=== PATIENT | female | born 1975 | race American Indian/Alaskan Native ===

== ENCOUNTER 2017-01-30 15:19 | Inpatient (IN) | payer MEDICAID ==
[2017-01-30 18:16] LABS: Hemoglobin 10.9 gm/dl (10.1-14.3)
[2017-01-30 18:23] LABS: Hematocrit 34.9 % (30.3-42.9); Mean Corpuscular HGB Conc 31 % (30-34); Mean Corpuscular Hemoglobin 25 pg (28-32); Mean Corpuscular Volume 79 fl (79-97); Platelet Count 485 K/mm3 (140-440); Red Blood Count 4.41 M/mm3 (3.65-5.03); Red Cell Distribution Width 20.8 % (13.2-15.2); White Blood Count 17.5 K/mm3 (4.5-11.0)
[2017-01-30 18:40] LABS: Alanine Aminotransferase 12 units/L (7-56); Albumin 3.9 g/dL (3.9-5); Albumin/Globulin Ratio 0.7 %; Alkaline Phosphatase 64 units/L (35-129); Anion Gap 22 mmol/L; BUN/Creatinine Ratio 18.33; Blood Urea Nitrogen 11 mg/dL (7-17); Calcium 8.9 mg/dL (8.4-10.2); Carbon Dioxide 22 mmol/L (22-30); Glucose 129 mg/dL (65-100); Lipase 17 units/L (13-60); Potassium 3.5 mmol/L (3.6-5.0); Sodium 139 mmol/L (137-145); Total Protein 9.6 g/dL (6.3-8.2)
[2017-01-30 19:05] LABS: Basophils % (Manual) 0 % (0.0-1.8); Blastocytes % (Manual) 0 %; Eosinophils % (Manual) 0 % (0.0-4.3)
[2017-01-30 19:07] LABS: Anisocytosis 1+; Diff Status Complete
[2017-01-30] MEDS ORDERED: ZOFRAN IV ONE (19:38)
[2017-01-30] MEDS ORDERED: ZOFRAN ODT PO ONE (20:40)
[2017-01-30] MEDS ORDERED: ZOFRAN ODT ONE (20:45)
[2017-01-30 21:12] LABS: Bilirubin,Urine NEG (Negative); Blood,Urine NEG (Negative); Ketones,Urine NEG (Negative); Leukocyte Esterase,Urine SM (Negative); Mucus,Urine 3+ /HPF; Nitrite,Urine NEG (Negative); Urobilinogen,Urine < 2.0 mg/dL (<2.0)
[2017-01-30] MEDS ORDERED: NACL 0.9% 1000 ML 1,000 ML IV ONE (21:18)
[2017-01-30] MEDS ORDERED: DILAUDID IV ONE (21:18)
--- NOTE | 2017-01-30 21:24 | Emergency Department Report ---
ED Abdominal Pain HPI - General Chief Complaint: Abdominal Pain Stated Complaint: BACK PAIN/ABD PAIN Time Seen by Provider: 01/30/17 21:13 Source: patient, EMS Mode of arrival: Stretcher Limitations: No Limitations - History of Present Illness Initial Comments: 41-year-old female with a past medical history of HIV with undetectable viral load, GERD, hypertension, depression, anxiety, and kidney stones and previous history included 3 visits to the hospital complains of right abdominal pain. Pain is aching, burning, rated 10/10 in intensity. Palpation and movement. No alleviating factors. Symptoms are constant. Positive associated nausea and vomiting. Denies hematuria, dysuria, or fever. Severity scale (0 -10): 10 - Related Data Home Medications Medication Instructions Recorded Confirmed Last Taken Cephalexin [Keflex] 500 mg PO 01/30/17 1 Day Ago 500mg Previous Rx's Medication Instructions Recorded Last Taken Type Ibuprofen [Motrin] 800 mg PO Q8HR PRN #60 tablet 03/14/15 1 Day Ago Rx 800mg traMADol [Ultram] 50 mg PO Q6HR PRN #20 tablet 03/14/15 1 Day Ago Rx oxyCODONE /ACETAMINOPHEN [Percocet 1 tab PO Q6HR PRN #16 tablet 04/07/15 1 Day Ago Rx 5/325] Allergies Allergy/AdvReac Type Severity Reaction Status Date / Time promethazine HCl AdvReac ANXIOUS/ Verified 03/14/15 11:28 [From Phenergan] RONN ED Review of Systems ROS: Stated complaint: BACK PAIN/ABD PAIN Other details as noted in HPI Comment: All other systems reviewed and negative Other: Constitutional: No fevers chills Eyes: No eye pain visual changes ENT: No ear pain or throat pain Neck: Denies pain Respiratory: Denies cough wheezing shortness of breath Cardiovascular: Denies chest pain, palpitations, syncope GI:as per hpi : Denies dysuria Musculoskeletal: Denies back pain Skin: Denies rash, lesions, erythema Neurologic: Denies headache, numbness, weakness ED Past Medical Hx - Past Medical History Hx Hypertension: Yes Hx GERD: Yes Hx Sickle Cell Disease: (TRAIT) Hx Arthritis: Yes Hx Kidney Stones: Yes Hx Psychiatric Treatment: Yes (MANIC DEPRESSION; ANXIETY) Hx HIV: Yes - Surgical History Hx Breast Surgery: Yes (RIGHT LUMPECTOMY) Additional Surgical History: X 3. RIGHT CARPAL TUNNEL RELEASE. BILATERAL KNEE. BACK SURGERY - Social History Smoking Status: Former Smoker Substance Use Type: None - Medications Home Medications: Home Medications Medication Instructions Recorded Confirmed Last Taken Type Ibuprofen [Motrin] 800 mg PO Q8HR PRN #60 tablet 03/14/15 01/30/17 1 Day Ago Rx 800mg traMADol [Ultram] 50 mg PO Q6HR PRN #20 tablet 03/14/15 01/30/17 1 Day Ago Rx oxyCODONE /ACETAMINOPHEN [Percocet 1 tab PO Q6HR PRN #16 tablet 04/07/15 1 Day Ago Rx 5/325] Cephalexin [Keflex] 500 mg PO 01/30/17 1 Day Ago History 500mg ED Physical Exam - General Limitations: No Limitations - Other Other exam information: General: Moderate distress due to pain Head exam: Atraumatic, normocephalic Eyes exam: Normal appearance ENT: Moist mucous membrane, normal oropharynx Neck exam: Normal inspection, full range of motion Respiratory exam: Clear to auscultation bilateral, no wheezes, rales, crackles Cardiovascular: Normal rate and rhythm, normal heart sounds Abdomen: Soft, nondistended, and nontender, with normal bowel sounds, right lower and right upper quadrant tenderness Extremity: Full range of motion normal inspection no deformity Back: Normal Inspection, full range of motion, right flank tenderness Neurologic: Alert, oriented x3, cranial nerves intact, no motor or sensory deficit Psychiatric: normal affect, normal mood Skin: Warm, dry, intact ED Course Vital Signs 01/30/17 01/30/17 01/30/17 17:07 20:57 21:00 Temperature 99.1 F Pulse Rate 92 H Respiratory 20 Rate Blood Pressure 148/94 165/76 Blood Pressure [Left] O2 Sat by Pulse 100 97 100 Oximetry 01/30/17 01/30/17 01/31/17 21:08 22:08 00:27 Temperature 98.0 F 98.4 F Pulse Rate 69 65 59 L Respiratory 18 16 16 Rate Blood Pressure Blood Pressure 108/50 130/81 [Left] O2 Sat by Pulse 100 97 Oximetry - Reevaluation(s) Reevaluation #1: 01/30/17 21:23 Patient received Toradol, Zofran, and 500 mL of normal saline prior to my evaluation and continues to have pain. IV Dilaudid ordered ED Medical Decision Making - Lab Data Result diagrams: 01/30/17 17:35 01/30/17 17:35 Lab Results 01/30/17 01/30/17 01/30/17 Range/Units 17:35 17:35 17:35 WBC 17.5 H (4.5-11.0) K/mm3 RBC 4.41 (3.65-5.03) M/mm3 Hgb 10.9 (10.1-14.3) gm/dl Hct 34.9 (30.3-42.9) % MCV 79 (79-97) fl MCH 25 L (28-32) pg MCHC 31 (30-34) % RDW 20.8 H (13.2-15.2) % Plt Count 485 H (140-440) K/mm3 Add Manual Diff Complete Total Counted 100 Seg Neutrophils % [employer] Seg Neuts % (Manual) 90.0 H (40.0-70.0) % Band Neutrophils % 0 % Lymphocytes % (Manual) 6.0 L (13.4-35.0) % Reactive Lymphs % (Man) 0 % Monocytes % (Manual) 4.0 (0.0-7.3) % Eosinophils % (Manual) 0 (0.0-4.3) % Basophils % (Manual) 0 (0.0-1.8) % Metamyelocytes % 0 % Myelocytes % 0 % Promyelocytes % 0 % Blast Cells % 0 % Nucleated RBC % Not Reportable Seg Neutrophils # Man 15.8 H (1.8-7.7) K/mm3 Band Neutrophils # 0.0 K/mm3 Lymphocytes # (Manual) 1.1 L (1.2-5.4) K/mm3 Abs React Lymphs (Man) 0.0 K/mm3 Monocytes # (Manual) 0.7 (0.0-0.8) K/mm3 Eosinophils # (Manual) 0.0 (0.0-0.4) K/mm3 Basophils # (Manual) 0.0 (0.0-0.1) K/mm3 Metamyelocytes # 0.0 K/mm3 Myelocytes # 0.0 K/mm3 Promyelocytes # 0.0 K/mm3 Blast Cells # 0.0 K/mm3 WBC Morphology Not Reportable Hypersegmented Neuts Not Reportable Hyposegmented Neuts Not Reportable Hypogranular Neuts Not Reportable Smudge Cells Not Reportable Toxic Granulation Not Reportable Toxic Vacuolation Not Reportable Dohle Bodies Not Reportable Pelger-Huet Anomaly Not Reportable Johnna Rods Not Reportable Platelet Estimate Appears normal Clumped Platelets Not Reportable Plt Clumps, EDTA Not Reportable Large Platelets Not Reportable Giant Platelets Not Reportable Platelet Satelliting Not Reportable Plt Morphology Comment Not Reportable RBC Morphology Not Reportable Dimorphic RBCs Not Reportable Polychromasia Not Reportable Hypochromasia Not Reportable Poikilocytosis Not Reportable Anisocytosis 1+ Microcytosis Not Reportable Macrocytosis Not Reportable Spherocytes Not Reportable Pappenheimer Bodies Not Reportable Sickle Cells Not Reportable Target Cells Not Reportable Tear Drop Cells Not Reportable Ovalocytes Not Reportable Helmet Cells Not Reportable [place] Bodies Not Reportable Farner Rings Not Reportable [place] Cells Not Reportable Bite Cells Not Reportable Crenated Cell Not Reportable Elliptocytes Not Reportable Acanthocytes (Spur) Not Reportable Rouleaux Not Reportable Hemoglobin C Crystals Not Reportable Schistocytes Not Reportable Malaria parasites Not Reportable Owen Bodies Not Reportable Hem Pathologist Commnt No Sodium 139 (137-145) mmol/L Potassium 3.5 L (3.6-5.0) mmol/L Chloride 99.0 (98-107) mmol/L Carbon Dioxide 22 (22-30) mmol/L Anion Gap 22 mmol/L BUN 11 (7-17) mg/dL Creatinine 0.6 L (0.7-1.2) mg/dL Estimated GFR > 60 ml/min BUN/Creatinine Ratio 18.33 % Glucose 129 H (65-100) mg/dL Calcium 8.9 (8.4-10.2) mg/dL Total Bilirubin 0.50 (0.1-1.2) mg/dL AST 16 (5-40) units/L ALT 12 (7-56) units/L Alkaline Phosphatase 64 (35-129) units/L Total Protein 9.6 H (6.3-8.2) g/dL Albumin 3.9 (3.9-5) g/dL Albumin/Globulin Ratio 0.7 % Lipase 17 (13-60) units/L HCG, Qual Negative (Negative) Urine Color (Yellow) Urine Turbidity (Clear) Urine pH (5.0-7.0) Ur Specific [place] (1.003-1.030) Urine Protein (Negative) mg/dL Urine Glucose (UA) (Negative) mg/dL Urine Ketones (Negative) mg/dL Urine Blood (Negative) Urine Nitrite (Negative) Urine Bilirubin (Negative) Urine Urobilinogen (<2.0) mg/dL Ur Leukocyte Esterase (Negative) Urine WBC (Auto) (0.0-6.0) /HPF Urine RBC (Auto) (0.0-6.0) /HPF U Epithel Cells (Auto) (0-13.0) /HPF Urine Mucus /HPF 01/30/17 Range/Units 21:00 WBC (4.5-11.0) K/mm3 RBC (3.65-5.03) M/mm3 Hgb (10.1-14.3) gm/dl Hct (30.3-42.9) % MCV (79-97) fl MCH (28-32) pg MCHC (30-34) % RDW (13.2-15.2) % Plt Count (140-440) K/mm3 Add Manual Diff Total Counted Seg Neutrophils % Seg Neuts % (Manual) (40.0-70.0) % Band Neutrophils % % Lymphocytes % (Manual) (13.4-35.0) % Reactive Lymphs % (Man) % Monocytes % (Manual) (0.0-7.3) % Eosinophils % (Manual) (0.0-4.3) % Basophils % (Manual) (0.0-1.8) % Metamyelocytes % % Myelocytes % % Promyelocytes % % Blast Cells % % Nucleated RBC % Seg Neutrophils # Man (1.8-7.7) K/mm3 Band Neutrophils # K/mm3 Lymphocytes # (Manual) (1.2-5.4) K/mm3 Abs React Lymphs (Man) K/mm3 Monocytes # (Manual) (0.0-0.8) K/mm3 Eosinophils # (Manual) (0.0-0.4) K/mm3 Basophils # (Manual) (0.0-0.1) K/mm3 Metamyelocytes # K/mm3 Myelocytes # K/mm3 Promyelocytes # K/mm3 Blast Cells # K/mm3 WBC Morphology Hypersegmented Neuts Hyposegmented Neuts Hypogranular Neuts Smudge Cells Toxic Granulation Toxic Vacuolation Dohle Bodies Pelger-Huet Anomaly Johnna Rods Platelet Estimate Clumped Platelets Plt Clumps, EDTA Large Platelets Giant Platelets Platelet Satelliting Plt Morphology Comment RBC Morphology Dimorphic RBCs Polychromasia Hypochromasia Poikilocytosis Anisocytosis Microcytosis Macrocytosis Spherocytes Pappenheimer Bodies Sickle Cells Target Cells Tear Drop Cells Ovalocytes Helmet Cells [place] Bodies Farner Rings Digna Cells Bite Cells Crenated Cell Elliptocytes Acanthocytes (Spur) Rouleaux Hemoglobin C Crystals Schistocytes Malaria parasites Owen Bodies Hem Pathologist Commnt Sodium (137-145) mmol/L Potassium (3.6-5.0) mmol/L Chloride (98-107) mmol/L Carbon Dioxide (22-30) mmol/L Anion Gap mmol/L BUN (7-17) mg/dL Creatinine (0.7-1.2) mg/dL Estimated GFR ml/min BUN/Creatinine Ratio % Glucose (65-100) mg/dL Calcium (8.4-10.2) mg/dL Total Bilirubin (0.1-1.2) mg/dL AST (5-40) units/L ALT (7-56) units/L Alkaline Phosphatase (35-129) units/L Total Protein (6.3-8.2) g/dL Albumin (3.9-5) g/dL Albumin/Globulin Ratio % Lipase (13-60) units/L HCG, Qual (Negative) Urine Color Yellow (Yellow) Urine Turbidity Slightly-cloudy (Clear) Urine pH 8.0 H (5.0-7.0) Ur Specific [place] 1.025 (1.003-1.030) Urine Protein 100 mg/dl (Negative) mg/dL Urine Glucose (UA) 50 (Negative) mg/dL Urine Ketones Neg (Negative) mg/dL Urine Blood Neg (Negative) Urine Nitrite Neg (Negative) Urine Bilirubin Neg (Negative) Urine Urobilinogen < 2.0 (<2.0) mg/dL Ur Leukocyte Esterase Sm (Negative) Urine WBC (Auto) 3.0 (0.0-6.0) /HPF Urine RBC (Auto) 6.0 (0.0-6.0) /HPF U Epithel Cells (Auto) 27.0 H (0-13.0) /HPF Urine Mucus 3+ /HPF - Radiology Data Radiology results: report reviewed CT abdomen and pelvis IV contrast: Low-density focus right kidney cyst incompletely characterized. Status post lumbar fusion at L5-S1. No acute findings within the abdomen or pelvic - Medical Decision Making Patient had relief in pain after initial medication. When the toes she will be discharged patient stated that she believes something is wrong does not feel l comfortable going home. Patient requiring additional Dilaudid dose of medication. We'll admit for intractable pain. Patient has a leukocytosis without infection identified at this time. Patient states she was admitted to [facility] several months ago for similar symptoms and received endoscopy and colonoscopy. She followed up with Dr. Samuels. She cannot provide a specific diagnosis despite her previous workup - Differential Diagnosis renal colic, ectopic, UTI, appendicitis, diverticulitis Critical Care Time: No Critical care attestation.: If time is entered above; I have spent that time in minutes in the direct care of this critically ill patient, excluding procedure time. ED Disposition Clinical Impression: Intractable abdominal pain, Leukocytosis, HIV (human immunodeficiency virus infection) Disposition: OP ADMIT IP TO THIS HOSP Is pt being admited?: Yes Condition: Stable Time of Disposition: 00:14 (Dr Mendoza/hosp)
--- NOTE | 2017-01-30 22:47 | Cat Scan Report ---
FINAL REPORT EXAM: CT ABDOMEN PELVIS W CON HISTORY: rlq/flank pain, vomiting, hx of kidney stones TECHNIQUE: CT abdomen and pelvis with intravenous contrast PRIORS: None. FINDINGS: No acute abnormality identified in the lung bases. No focal abnormality identified within the liver parenchyma. The spleen demonstrates normal size and attenuation. No pancreatic abnormalities seen. The kidneys demonstrate symmetric contrast enhancement. No evidence of hydronephrosis. 1 centimeter low-density focus right kidney. Too small to completely characterize however most likely cyst. The adrenal glands are unremarkable Abdominal aorta is normal in caliber. No pathologically enlarged lymph nodes are identified. No signs of free fluid or free air No evidence of small bowel dilatation. Colon is nondistended. No pericolonic inflammatory change. The appendix is identified and is unremarkable. Noted is anterior lumbar fusion at L5-S1 Urinary bladder is unremarkable. IMPRESSION: Small low-density focus right kidney probable cyst incompletely characterized Status post lumbar fusion at L5-S1 No acute findings within the abdomen or pelvis
[2017-01-31] MEDS ORDERED: DILAUDID IV ONE (01:02)
[2017-01-31] MEDS ORDERED: MILK OF MAGNESIA PO PRN (01:07)
[2017-01-31] MEDS ORDERED: DULCOLAX PR PRN (01:07)
[2017-01-31] MEDS ORDERED: REGLAN IV PRN (01:07)
[2017-01-31] MEDS ORDERED: TYLENOL PO PRN (01:07)
--- NOTE | 2017-01-31 01:07 | History and Physical Report ---
History of Present Illness Date of examination: 01/31/17 History of present illness: 41-year-old woman with a history of HIV, unknown CD4 count, hypertension, GERD dose emergency room with complaints of lower abdominal pain which started 2 days ago. She describes the pain as constant, sharp, intensity 10 over 10, no radiation, and I would IV pain medications given in the emergency room, cannot identify exacerbating factor. [facility] was [facility] [place] ago. she had an endoscopy, colonoscopy. She states she was diagnosed with abscess on vaginal wall and was given clindamycin. Admits to fever and chills Review Of Systems: Constitutional: no weight loss Ears, eyes, nose, mouth and throat: no nasal congestion, no nasal discharge, no sinus pressure, blurry vision, diplopia Neck: No neck pain or rigidity. Cardiovascular: chest pain, orthopnea, palpitations Respiratory: No shortness of breath, cough Gastrointestinal: abdominal pain, hematochezia Genitourinary : no dysuria, frequency , hematuria Musculoskeletal: no muscle ache Integumentary: no rash, no pruritis Neurological: no parathesias, focal weakness Endocrine: no cold or heat intolerance, no polyuria or polydipsia Hematologic/Lymphatic: no easy bruising, no easy bleeding, no gland swelling Allergic/Immunologic: no urticaria, no angioedema. PAST MEDICAL HISTORY:HIV, unknown CD4 count, hypertension, GERD PAST SURGICAL HISTORY:BACK SURGERY, 3, carpal tunnel release FAIMLY HISTORY:hypertension SOCIAL HISTORY: Smokes 5 cigarettes a day, no alcohol or drug Medications and Allergies Allergies Allergy/AdvReac Type Severity Reaction Status Date / Time promethazine HCl AdvReac ANXIOUS/ Verified 03/14/15 11:28 [From Phenergan] JITTERY Home Medications Medication Instructions Recorded Confirmed Last Taken Type Ibuprofen [Motrin] 800 mg PO Q8HR PRN #60 tablet 03/14/15 01/30/17 1 Day Ago Rx 800mg traMADol [Ultram] 50 mg PO Q6HR PRN #20 tablet 03/14/15 01/30/17 1 Day Ago Rx oxyCODONE /ACETAMINOPHEN [Percocet 1 tab PO Q6HR PRN #16 tablet 04/07/15 1 Day Ago Rx 5/325] Cephalexin [Keflex] 500 mg PO 01/30/17 1 Day Ago History 500mg Exam - Physical Exam Narrative exam: Gen. appearance: Patient lying in bed in no acute distress HEENT: Normocephalic/atraumatic, pupils equal round reactive to light, extra alkaline movement intact, no scleral icterus, no JVD or thyromegaly or nodule, neck is supple, mucous membrane moist, no erythema or exudate Heart: S1-S2, regular rate and rhythm Lungs: Clear to auscultation bilateral breathing comfortable Abdomen: Positive bowel sounds, tender in lower quadrant, nondistended, no organomegaly Extremities: No edema, cyanosis, clubbing Neuro:: Oriented 3 , cranial nerves II-12 intact, speech, motor intact Skin: No rash, nodules, warm dry - Constitutional Vitals: Temp Pulse Resp BP Pulse Ox 98.4 F 59 L 16 130/81 97 01/31/17 00:27 01/31/17 00:27 01/31/17 00:27 01/31/17 00:27 01/31/17 00:27 Results - Labs CBC & Chem 7: 01/30/17 17:35 01/30/17 17:35 Labs: Abnormal lab results 01/30/17 01/30/17 01/30/17 Range/Units 17:35 17:35 21:00 WBC 17.5 H (4.5-11.0) K/mm3 MCH 25 L (28-32) pg RDW 20.8 H (13.2-15.2) % Plt Count 485 H (140-440) K/mm3 Seg Neuts % (Manual) 90.0 H (40.0-70.0) % Lymphocytes % (Manual) 6.0 L (13.4-35.0) % Seg Neutrophils # Man 15.8 H (1.8-7.7) K/mm3 Lymphocytes # (Manual) 1.1 L (1.2-5.4) K/mm3 Potassium 3.5 L (3.6-5.0) mmol/L Creatinine 0.6 L (0.7-1.2) mg/dL Glucose 129 H (65-100) mg/dL Total Protein 9.6 H (6.3-8.2) g/dL Urine pH 8.0 H (5.0-7.0) U Epithel Cells (Auto) 27.0 H (0-13.0) /HPF - Imaging and Cardiology CT scan - abdomen: report reviewed CT scan - pelvis: report reviewed Assessment and Plan Assessment SIRS HIV, unknown CD4 count Hypertension GERD Plan Admit to medicine Start empiric IV Zosyn, follow cultures Start IV pain medication, DVT prophylaxis Continue appropriate outpatient medications
[2017-01-31] MEDS: MORPHINE IV PRN ×2 (03:16→07:05)
[2017-01-31] MEDS: ZOFRAN IV PRN ×2 (03:16→07:06)
[2017-01-31] MEDS: ZOSYN/NS 4.5GM/100ML 4.5 GM/100 ML VIAL IV SCH ×3 (07:01→21:07)
[2017-01-31] MEDS ORDERED: PERCOCET 5/325 PO PRN ×2 (09:27→12:00)
--- NOTE | 2017-01-31 09:29 | Progress Note ---
Assessment and Plan Assessment and plan: 41-year-old woman with past medical history of HIV, hypertension, GERD, tobacco abuse, current recent least seen at [facility], she was diagnosed with abscess/cellulitis, which was perivanginal, it was drained and, treated with clindamycin. She then presents here with lower abdominal pain [address] abdomen and pelvis did not show any acute findings, obtain pelvic ultrasound and transvaginal ultrasound Continue antibiotics, ID consult, ROLL COVERER consult HIV Check CD4 count and viral load, ID application consultant Hypertension Currently normotensive, not on any medications, monitor blood pressure curve Tobacco abuse Tobacco cessation counseling provided, nicotine patch has been ordered DVT prophylaxis Lovenox History Interval history: Continues to complain of lower abdominal pain, states it is 4 out of 10, dull it is in her pelvis. and radiates to her lower back Hospitalist Physical - Physical exam Narrative exam: General.: Appears well, no distress, nontoxic HEENT: Moist mucous membranes, extraocular muscles intact, no lymphadenopathy Neck: supple Cardiac: S1-S2 heard Lungs: clear to auscultation bilaterally Abdomen: soft , nontender, nondistended, bowel sounds positive Extremities: no edema clubbing or cyanosis Skin: no rash or lesions Neurologic: no gross focal deficits Psych: appropriate behavior, appropriate mood, corporative, judgment intact - Constitutional Vitals: Temp Pulse Resp BP Pulse Ox 98.2 F 63 18 137/59 100 01/31/17 08:59 01/31/17 08:59 01/31/17 08:59 01/31/17 08:59 01/31/17 08:59 Results - Labs CBC & Chem 7: 01/30/17 17:35 01/30/17 17:35 Labs: Laboratory Last Values WBC 17.5 K/mm3 (4.5-11.0) H 01/30/17 17:35 RBC 4.41 M/mm3 (3.65-5.03) 01/30/17 17:35 Hgb 10.9 gm/dl (10.1-14.3) 01/30/17 17:35 Hct 34.9 % (30.3-42.9) 01/30/17 17:35 MCV 79 fl (79-97) 01/30/17 17:35 MCH 25 pg (28-32) L 01/30/17 17:35 MCHC 31 % (30-34) 01/30/17 17:35 RDW 20.8 % (13.2-15.2) H 01/30/17 17:35 Plt Count 485 K/mm3 (140-440) H 01/30/17 17:35 Add Manual Diff Complete 01/30/17 17:35 Total Counted 100 01/30/17 17:35 Seg Neutrophils % Icu Clerk 01/30/17 17:35 Seg Neuts % (Manual) 90.0 % (40.0-70.0) H 01/30/17 17:35 Band Neutrophils % 0 % 01/30/17 17:35 Lymphocytes % (Manual) 6.0 % (13.4-35.0) L 01/30/17 17:35 Reactive Lymphs % (Man) 0 % 01/30/17 17:35 Monocytes % (Manual) 4.0 % (0.0-7.3) 01/30/17 17:35 Eosinophils % (Manual) 0 % (0.0-4.3) 01/30/17 17:35 Basophils % (Manual) 0 % (0.0-1.8) 01/30/17 17:35 Metamyelocytes % 0 % 01/30/17 17:35 Myelocytes % 0 % 01/30/17 17:35 Promyelocytes % 0 % 01/30/17 17:35 Blast Cells % 0 % 01/30/17 17:35 Nucleated RBC % Not Reportable 01/30/17 17:35 Seg Neutrophils # Man 15.8 K/mm3 (1.8-7.7) H 01/30/17 17:35 Band Neutrophils # 0.0 K/mm3 01/30/17 17:35 Lymphocytes # (Manual) 1.1 K/mm3 (1.2-5.4) L 01/30/17 17:35 Abs React Lymphs (Man) 0.0 K/mm3 01/30/17 17:35 Monocytes # (Manual) 0.7 K/mm3 (0.0-0.8) 01/30/17 17:35 Eosinophils # (Manual) 0.0 K/mm3 (0.0-0.4) 01/30/17 17:35 Basophils # (Manual) 0.0 K/mm3 (0.0-0.1) 01/30/17 17:35 Metamyelocytes # 0.0 K/mm3 01/30/17 17:35 Myelocytes # 0.0 K/mm3 01/30/17 17:35 Promyelocytes # 0.0 K/mm3 01/30/17 17:35 Blast Cells # 0.0 K/mm3 01/30/17 17:35 WBC Morphology Not Reportable 01/30/17 17:35 Hypersegmented Neuts Not Reportable 01/30/17 17:35 Hyposegmented Neuts Not Reportable 01/30/17 17:35 Hypogranular Neuts Not Reportable 01/30/17 17:35 Smudge Cells Not Reportable 01/30/17 17:35 Toxic Granulation Not Reportable 01/30/17 17:35 Toxic Vacuolation Not Reportable 01/30/17 17:35 Dohle Bodies Not Reportable 01/30/17 17:35 Pelger-Huet Anomaly Not Reportable 01/30/17 17:35 Johnna Rods Not Reportable 01/30/17 17:35 Platelet Estimate Appears normal 01/30/17 17:35 Clumped Platelets Not Reportable 01/30/17 17:35 Plt Clumps, EDTA Not Reportable 01/30/17 17:35 Large Platelets Not Reportable 01/30/17 17:35 Giant Platelets Not Reportable 01/30/17 17:35 Platelet Satelliting Not Reportable 01/30/17 17:35 Plt Morphology Comment Not Reportable 01/30/17 17:35 RBC Morphology Not Reportable 01/30/17 17:35 Dimorphic RBCs Not Reportable 01/30/17 17:35 Polychromasia Not Reportable 01/30/17 17:35 Hypochromasia Not Reportable 01/30/17 17:35 Poikilocytosis Not Reportable 01/30/17 17:35 Anisocytosis 1+ 01/30/17 17:35 Microcytosis Not Reportable 01/30/17 17:35 Macrocytosis Not Reportable 01/30/17 17:35 Spherocytes Not Reportable 01/30/17 17:35 Pappenheimer Bodies Not Reportable 01/30/17 17:35 Sickle Cells Not Reportable 01/30/17 17:35 Target Cells Not Reportable 01/30/17 17:35 Tear Drop Cells Not Reportable 01/30/17 17:35 Ovalocytes Not Reportable 01/30/17 17:35 Helmet Cells Not Reportable 01/30/17 17:35 Muller-[place] Bodies Not Reportable 01/30/17 17:35 Gloster Rings Not Reportable 01/30/17 17:35 Digna Cells Not Reportable 01/30/17 17:35 Bite Cells Not Reportable 01/30/17 17:35 Crenated Cell Not Reportable 01/30/17 17:35 Elliptocytes Not Reportable 01/30/17 17:35 Acanthocytes (Spur) Not Reportable 01/30/17 17:35 Rouleaux Not Reportable 01/30/17 17:35 Hemoglobin C Crystals Not Reportable 01/30/17 17:35 Schistocytes Not Reportable 01/30/17 17:35 Malaria parasites Not Reportable 01/30/17 17:35 Owen Bodies Not Reportable 01/30/17 17:35 Hem Pathologist Commnt No 01/30/17 17:35 Sodium 139 mmol/L (137-145) 01/30/17 17:35 Potassium 3.5 mmol/L (3.6-5.0) L 01/30/17 17:35 Chloride 99.0 mmol/L (98-107) 01/30/17 17:35 Carbon Dioxide 22 mmol/L (22-30) 01/30/17 17:35 Anion Gap 22 mmol/L 01/30/17 17:35 BUN 11 mg/dL (7-17) 01/30/17 17:35 Creatinine 0.6 mg/dL (0.7-1.2) L 01/30/17 17:35 Estimated GFR > 60 ml/min 01/30/17 17:35 BUN/Creatinine Ratio 18.33 % 01/30/17 17:35 Glucose 129 mg/dL (65-100) H 01/30/17 17:35 Calcium 8.9 mg/dL (8.4-10.2) 01/30/17 17:35 Total Bilirubin 0.50 mg/dL (0.1-1.2) 01/30/17 17:35 AST 16 units/L (5-40) 01/30/17 17:35 ALT 12 units/L (7-56) 01/30/17 17:35 Alkaline Phosphatase 64 units/L (35-129) 01/30/17 17:35 Total Protein 9.6 g/dL (6.3-8.2) H 01/30/17 17:35 Albumin 3.9 g/dL (3.9-5) 01/30/17 17:35 Albumin/Globulin Ratio 0.7 % 01/30/17 17:35 Lipase 17 units/L (13-60) 01/30/17 17:35 HCG, Qual Negative (Negative) 01/30/17 17:35 Urine Color Yellow (Yellow) 01/30/17 21:00 Urine Turbidity Slightly-cloudy (Clear) 01/30/17 21:00 Urine pH 8.0 (5.0-7.0) H 01/30/17 21:00 Ur Specific [place] 1.025 (1.003-1.030) 01/30/17 21:00 Urine Protein 100 mg/dl mg/dL (Negative) 01/30/17 21:00 Urine Glucose (UA) 50 mg/dL (Negative) 01/30/17 21:00 Urine Ketones Neg mg/dL (Negative) 01/30/17 21:00 Urine Blood Neg (Negative) 01/30/17 21:00 Urine Nitrite Neg (Negative) 01/30/17 21:00 Urine Bilirubin Neg (Negative) 01/30/17 21:00 Urine Urobilinogen < 2.0 mg/dL (<2.0) 01/30/17 21:00 Ur Leukocyte Esterase Sm (Negative) 01/30/17 21:00 Urine WBC (Auto) 3.0 /HPF (0.0-6.0) 01/30/17 21:00 Urine RBC (Auto) 6.0 /HPF (0.0-6.0) 01/30/17 21:00 U Epithel Cells (Auto) 27.0 /HPF (0-13.0) H 01/30/17 21:00 Urine Mucus 3+ /HPF 01/30/17 21:00 - Imaging and Cardiology CT scan - abdomen: image reviewed (no acute findings appears to be a small little focus right kidney cyst)
[2017-01-31] MEDS: LOVENOX SUB-Q SCH (09:40)
[2017-01-31] MEDS ORDERED: LOVENOX SUB-Q SCH (10:00)
--- NOTE | 2017-01-31 10:22 | Admit Criteria Form ---
Admission Criteria Documentation: ABDOMINAL PAIN Clinical Indications for Admission to Inpatient Care ( [place] band/check or initial the applicable condition/criteria): Admission is indicated for ANY ONE of the following (1)(2)(3)(4)(5)(6): [ ]I. Surgery needed that cannot be performed on ambulatory basis [ ]II. Peritoneal signs present (eg, rebound tenderness, rigidity) [ ]III. Evaluation requires patient to not eat or drink for extended period ( eg, more than 24 hours). [ X]IV. Inpatient admission required[B] rather than observation care (see Abdominal Pain: Observation Care guideline as appropriate) because of ANY ONE of the following(7)(8)(9): [ ] a) Hemodynamic instability [ ]b) Severe pain requiring acute inpatient management [ ]c) Identification of etiology or finding that requires inpatient care (eg, aortic dissection, free air,bowel ischemia)(10) [ ]d) Absent bowel sounds with complete ileus (11) [ ]e) Signs of intestinal obstruction[C] [ ]f) Suspected toxic megacolon [ ]g) Severe electrolyte abnormalities requiring inpatient care [ ]h) High fever or infection requiring inpatient admission as indicated by ANY ONE of the following (12)(13): [ ]i) Appropriate outpatient or observation care antimicrobial treatment unavailable, not effective, or not feasible [ ]ii) Documented bacteremia [ ]iii) Temperature greater than 104.9 degrees F (40.5 degrees C) (oral) [ ]iv) Temperature greater than 103.1 degrees F (39.5 degrees C) ( oral) or less than 96.8 degrees F (36 degrees C) (rectal) that does not respond to all emergency treatment measures [ ]i) IV fluid required rather than oral rehydration to replace significant ongoing (eg, for greater than 24 hours) losses (greater than 3 L/m2 per day)(14)(15) [ ]j) Percutaneous or open drainage (eg, abscess, biliary tract) procedures [ ]k) Parenteral nutrition regimen that must be implemented on inpatient basis [X ]l) Other condition, treatment, or monitoring requiring inpatient admission Extended stay beyond goal length of stay may be needed for (1)(3)(4)(10)(16): [ ]a) Surgery (e.g., colectomy, revascularization procedure) [ ]b) Persistent abdominal pain with suspected intra-abdominal process [ ]c) Diagnosed condition requiring continued stay (e.g., pancreatitis, complicated diverticulitis) The original [facility] [employer] content created by [facility] has been revised. The portions of the content which have been revised are identified through the use of italic text or in bold, and [facility] has neither reviewed nor approved the modified material.All other unmodified content is copyright [facility]. Please see references footnoted in the original [facility] edition 2017 Admission Criteria Met: Yes
[2017-01-31] MEDS ORDERED: PNEUMOVAX 23 IM ONE (12:00)
[2017-01-31] MEDS ORDERED: Fluarix Quad 2017-2018(36 MOS+) IM ONE (12:00)
--- NOTE | 2017-01-31 12:01 | Ultrasound Report ---
ULTRASOUND PELVIS COMPLETE - TRANSABDOMINAL AND TRANSVAGINAL: INDICATION: Pelvic pain, infection. COMPARISON: None similar. FINDINGS: Transabdominal and transvaginal pelvic sonography performed in this patient with LMP of 01/15/2017 demonstrates an anteverted, though slightly retroflexed 12.8 x 5.1 x 4.7 cm uterus. No discrete fibroids identified. Endometrium somewhat heterogeneous towards the fundus with thickness ranging between 1.5-2.1 cm on endovaginal images 8-12, though not hypervascular. Small nabothian cysts measure upto 0.7 cm. No significant pelvic free fluid. Right ovary is 3.4 x 2.1 x 2.1 cm while the left ovary is 3.1 x 2.4 x 1.5 cm. Small slightly complex bilateral ovarian cysts measure upto 1.3-1.4 cm on either side. CONCLUSION: No acute pelvic sonographic abnormality with few incidental findings including somewhat heterogeneous/thickened fundal endometrium, as described, though may be physiologic. Sonographic follow-up in approximately 6 weeks or opposite phase of the menstrual cycle may also be considered to assess for interval change or resolution, as warranted. Thank you for the opportunity to participate in this patient's care.
[2017-01-31] MEDS: DILAUDID IV PRN ×3 (12:16→21:06)
[2017-01-31] MEDS: HABITROL TD SCH (13:31)
--- NOTE | 2017-01-31 15:03 | Event Note ---
Patient Name: BECKY CHAUDHARI Date of : 75 Patient Status: Emergency Emergency Provider: HECTOR JAQUEZ Date: 01/31/17 13:29 Initialization Date: 01/31/17 13:29 History of Present Illness - Reason for Consult Consult date: 01/31/17 abdominal pain/HIV Requesting physician: JOSE A BURNS - History of Present Illness 41-year-old woman female with history of HIV diagnosed in 2015, follows Dr Arita, currently on triumeq, last VL undetectable (4 months ago), hypertension and GERD admitted on 01/30/17 due to 6-day history of worsening right flank pain constant, radiated to the back and associated with nausea, vomiting x several times. Denies diarrhea. She reports that 5 days ago, she went to the ED due to right vulvar boil. [place] [facility] [place] was sent home with PO antibitoics. She does not remember the name of the medication. Of note, she was [place] [facility] [place] due to similar abdominal pain, she underwent EGC and colonsocpoy which were positive for possible "gastritis". In the ED, temp 98.5, BP 102/71, WBC 17K, CR 0.6, LFTs normal, Lipase normal. UA negative. Abdominal CT showed a 1 cm right renal cyst?. Pelvis US showed heterogenous and thickened endometrium. Blood cx negative. Microbiology: Blood cultures: 01/31 ngtd Urine cultures: Respiratory cultures: Wound cultures: Stool cultures: Other: Current Antimicrobials: Zosyn 01/31 Previous Antimicrobials: Past History Past Medical History: other (HIV, gastritis) Past Surgical History: No surgical history Social history: no significant social history Medications and Allergies Allergies Allergy/AdvReac Type Severity Reaction Status Date / Time promethazine HCl AdvReac ANXIOUS/ Verified 03/14/15 11:28 [From Phenergan] JITTERY Home Medications Medication Instructions Recorded Confirmed Last Taken Type Ibuprofen [Motrin] 800 mg PO Q8HR PRN #60 tablet 03/14/15 01/30/17 1 Day Ago Rx 800mg traMADol [Ultram] 50 mg PO Q6HR PRN #20 tablet 03/14/15 01/30/17 1 Day Ago Rx oxyCODONE /ACETAMINOPHEN [Percocet 1 tab PO Q6HR PRN #16 tablet 04/07/15 1 Day Ago Rx 5/325] Cephalexin [Keflex] 500 mg PO 01/30/17 1 Day Ago History 500mg Review of Systems Constitutional: fever, chills, fatigue, no weight loss, no weight gain Ears, nose, mouth and throat: no nasal congestion, no nasal discharge Breasts: no swelling Cardiovascular: no palpitations Respiratory: no cough with sputum Gastrointestinal: abdominal pain, nausea, vomiting, no diarrhea Genitourinary Female: pelvic pain Rectal: no pain Integumentary: no rash, no wounds Neurological: no confusion Psychiatric: no anxiety, no suicidal ideation Physical Examination - Physical Exam Narrative exam: General appearance: Alert in NAD, conversant Eyes: anicteric sclerae, moist conjunctivae; no lid-lag; PERRLA HENT: Atraumatic; oropharynx clear with moist mucous membranes and no mucosal ulcerations/no oral thrush; normal hard and soft palate. Normal external ears. Neck: Trachea midline; supple, no thyromegaly or lymphadenopathy Lungs: CTA, with normal respiratory effort and no intercostal retractions CV: RRR, no murmurs Abdomen: Soft, +TTP in right flank Extremities: No peripheral edema or extremity lymphadenopathy Skin: Normal temperature, turgor and texture; no rash, ulcers or subcutaneous nodules Psych: Appropriate affect, alert and oriented to person, place and time. Neuro: alert and oriented x 3. Moving all extermities Lines: No CVL / PICC - Constitutional Vitals: Vital Signs Temp Pulse Resp BP Pulse Ox 98.5 F 85 24 102/71 98 01/31/16 22:00 01/31/16 22:00 01/31/16 22:00 01/31/16 22:00 01/31/16 22:00 Assessment and Plan Assessment: 1) Leukocytosis: associated with abdominal pain, unclear etiology. DDx - partially treated UTI +/- PID +/-gastritis. Patient was recently on PO antibiotics-clindamycin for vulvar boil a week ago. UA on admission was unremarkable. 2) ?presumed UTI - partially treated - Abdominal CT showed a 1 cm right renal cyst? abscess? 3) ?PID - Pelvis US showed heterogenous and thickened endometrium. Blood cx negative. 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 Jacqueline Martinez MD Infectious Diseases Specialist [facility] [phone] O [phone]
[2017-01-31] MEDS: VIBRAMYCIN PO SCH ×2 (17:11→21:07)
[2017-01-31] MEDS ORDERED: DICYCLOMINE 20 MG PO PRN (17:14)
[2017-01-31] MEDS ORDERED: BENTYL PO PRN (17:25)
--- NOTE | 2017-01-31 18:06 | Consultation ---
History of Present Illness Consult date: 01/31/17 Requesting physician: JOSE A FRANK Reason for consult: other (follow-up "boil") History of present illness: Is a 41-year-old black female HIV positive para 3004 with last menstrual period was 01/21/2017. Patient being admitted for abdominal pain. Patient given a history or approximately one week ago being seen at [address] [place] [address] ER for right Bartholin gland abscess. Patient states that the abscess was drained in the ER and a Word catheter was placed. Word catheter was removed in the ER here at [facility]. Patient without any more drainage. 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: abnormal PAP smear (patient's had 2 years ago she had cryotherapy done), HIV Medications and Allergies Allergies Allergy/AdvReac Type Severity Reaction Status Date / Time promethazine HCl AdvReac ANXIOUS/ Verified 03/14/15 11:28 [From Phenergan] JITTERY Home Medications Medication Instructions Recorded Confirmed Last Taken Type Ibuprofen [Motrin] 800 mg PO Q8HR PRN #60 tablet 03/14/15 01/30/17 1 Day Ago Rx 800mg traMADol [Ultram] 50 mg PO Q6HR PRN #20 tablet 03/14/15 01/30/17 1 Day Ago Rx oxyCODONE /ACETAMINOPHEN [Percocet 1 tab PO Q6HR PRN #16 tablet 04/07/15 1 Day Ago Rx 5/325] Clindamycin [Clindamycin CAP] 300 mg PO Q8H 01/31/17 01/31/17 Unknown History Desyrel 50 mg PO QHS 01/31/17 01/31/17 Unknown History Dicyclomine 20 mg PO Q6H PRN 01/31/17 01/31/17 Unknown History Triumeq Tablet 1 tab PO DAILY 01/31/17 01/31/17 01/25/17 History Xanax TAB 1 mg PO BID 01/31/17 01/31/17 Unknown History Zofran Odt 4 mg PO Q8H PRN 01/31/17 01/31/17 01/25/17 History diphenhydrAMINE [Benadryl CAP] 25 mg PO Q6HR PRN 01/31/17 01/31/17 Unknown History Active Meds: Active Medications Acetaminophen (Tylenol) 650 mg PO Q4H PRN PRN Reason: Pain MILD(1-3)/Fever >100.5/DONNELLY Alprazolam (Xanax) 1 mg PO BID [facility] Bisacodyl (Dulcolax) 10 mg MN QDAY PRN PRN Reason: Constipation unrelieved by [facility] Dicyclomine HCl (Bentyl) 20 mg PO Q6H PRN PRN Reason: STOMACH CRAMPS Diphenhydramine HCl (Benadryl) 25 mg PO Q6HR PRN PRN Reason: ITCHING/SLEEP Doxycycline Hyclate (Vibramycin) 100 mg PO BID [facility] Last Admin: 01/31/17 17:11 Dose: 100 mg Enoxaparin Sodium (Lovenox) 40 mg SUB-Q QDAY@1000 BERNADINE Last Admin: 01/31/17 09:40 Dose: 40 mg Hydromorphone HCl (Dilaudid) 0.5 mg IV Q3H PRN PRN Reason: Pain , Severe (7-10) Last Admin: 01/31/17 17:13 Dose: 0.5 mg Piperacillin Sod/Tazobactam Sod (Zosyn/Ns 4.5gm/100ml) 4.5 gm in 100 mls @ 200 mls/hr IV Q8HR [facility] PRN Reason: Protocol Last Admin: 01/31/17 13:32 Dose: 200 mls/hr Magnesium Hydroxide (Milk Of Magnesia) 30 ml PO Q4H PRN PRN Reason: Constipation Metoclopramide HCl (Reglan) 10 mg IV Q6H PRN PRN Reason: Nausea And Vomiting Miscellaneous Medication (Triumeq Tablet) 1 tab PO DAILY [facility] Nicotine (Habitrol) 7 mg TD QDAY [facility] Last Admin: 01/31/17 13:31 Dose: 7 mg Ondansetron HCl (Zofran) 4 mg IV Q8H PRN PRN Reason: N/V unrelieved by Reglan Last Admin: 01/31/17 07:06 Dose: 4 mg Oxycodone/Acetaminophen (Percocet 5/325) 2 tab PO Q6HR PRN PRN Reason: Pain - Vital Signs Vital signs: Vital Signs Temp Pulse Resp BP Pulse Ox 99.1 F 92 H 20 148/94 100 01/30/17 17:07 01/30/17 17:07 01/30/17 17:07 01/30/17 17:07 01/30/17 17:07 Temp Pulse Resp BP Pulse Ox 98.2 F 63 18 137/59 100 01/31/17 08:59 01/31/17 08:59 01/31/17 08:59 01/31/17 08:59 01/31/17 14:42 - Physical Exam Genitourinary (Female): Positive: normal external genitalia, normal perenium Vulva: left: normal (I&D site completely healed. Small induration noted but was nontender.) Vagina: Positive: normal moisture. Negative: discharge Results Result Diagrams: 01/30/17 17:35 01/30/17 17:35 All other labs normal. Assessment and Plan - Patient Problems (1) Abscess of Bartholin's gland Current Visit: Yes Status: Resolved Plan to address problem: Appears that abscess is resolved with I&D with no current problems. Thank you for this consultation. Will sign off on due to resolved problem.
[2017-01-31] MEDS: XANAX PO SCH (21:07)
[2017-01-31] MEDS: BENADRYL PO PRN (21:07)
[2017-01-31] MEDS ORDERED: NON-FORMULARY (Xanax Tab 1 MG) PO SCH (22:00)
[2017-02-01] MEDS: ZOSYN/NS 4.5GM/100ML 4.5 GM/100 ML VIAL IV SCH ×3 (05:22→21:56)
[2017-02-01] MEDS: DILAUDID IV PRN ×4 (05:30→21:38)
[2017-02-01 07:27] LABS: Basophils % (Auto) 0.9 % (0.0-1.8); Eosinophils % (Auto) 1.5 % (0.0-4.3); Hemoglobin 10.4 gm/dl (10.1-14.3); Mean Corpuscular HGB Conc 32 % (30-34); Mean Corpuscular Volume 79 fl (79-97); Platelet Count 377 K/mm3 (140-440); Red Blood Count 4.18 M/mm3 (3.65-5.03); White Blood Count 6.2 K/mm3 (4.5-11.0)
[2017-02-01 07:37] LABS: Mean Corpuscular Hemoglobin 25 pg (28-32)
--- NOTE | 2017-02-01 07:40 | Progress Note ---
Assessment and Plan Assessment and plan: 41-year-old woman with past medical history of HIV, hypertension, GERD, tobacco abuse, current recent least seen at [facility], she was diagnosed with abscess/cellulitis, which was perivanginal, it was drained and, treated with clindamycin. She then presents here with lower abdominal pain 2 days. 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 and radiates to her lower back Hospitalist Physical - Physical exam Narrative exam: General.: Appears well, no distress, nontoxic HEENT: Moist mucous membranes, extraocular muscles intact, no lymphadenopathy Neck: supple Cardiac: S1-S2 heard Lungs: clear to auscultation bilaterally Abdomen: soft , nontender, nondistended, bowel sounds positive Extremities: no edema clubbing or cyanosis Skin: no rash or lesions Neurologic: no gross focal deficits Psych: appropriate behavior, appropriate mood, corporative, judgment intact - Constitutional Vitals: Temp Pulse Resp BP Pulse Ox 98.2 F 62 18 120/64 100 02/01/17 07:37 02/01/17 07:37 02/01/17 07:37 02/01/17 07:37 02/01/17 07:37 Results - Labs CBC & Chem 7: 02/01/17 07:02 02/01/17 07:02 Labs: Laboratory Last Values WBC 6.2 K/mm3 (4.5-11.0) 02/01/17 07:02 RBC 4.18 M/mm3 (3.65-5.03) 02/01/17 07:02 Hgb 10.4 gm/dl (10.1-14.3) 02/01/17 07:02 Hct 33.0 % (30.3-42.9) 02/01/17 07:02 MCV 79 fl (79-97) 02/01/17 07:02 MCH 25 pg (28-32) L 02/01/17 07:02 MCHC 32 % (30-34) 02/01/17 07:02 RDW 21.0 % (13.2-15.2) H 02/01/17 07:02 Plt Count 377 K/mm3 (140-440) 02/01/17 07:02 Lymph % (Auto) 15.8 % (13.4-35.0) 02/01/17 07:02 [place] % (Auto) 8.4 % (0.0-7.3) H 02/01/17 07:02 Eos % (Auto) 1.5 % (0.0-4.3) 02/01/17 07:02 Baso % (Auto) 0.9 % (0.0-1.8) 02/01/17 07:02 Lymph # 1.0 K/mm3 (1.2-5.4) L 02/01/17 07:02 [place] # 0.5 K/mm3 (0.0-0.8) 02/01/17 07:02 Eos # 0.1 K/mm3 (0.0-0.4) 02/01/17 07:02 Baso # 0.1 K/mm3 (0.0-0.1) 02/01/17 07:02 Add Manual Diff Complete 01/30/17 17:35 Total Counted 100 01/30/17 17:35 Seg Neutrophils % 73.4 % (40.0-70.0) H 02/01/17 07:02 Seg Neuts % (Manual) 90.0 % (40.0-70.0) H 01/30/17 17:35 Band Neutrophils % 0 % 01/30/17 17:35 Lymphocytes % (Manual) 6.0 % (13.4-35.0) L 01/30/17 17:35 Reactive Lymphs % (Man) 0 % 01/30/17 17:35 Monocytes % (Manual) 4.0 % (0.0-7.3) 01/30/17 17:35 Eosinophils % (Manual) 0 % (0.0-4.3) 01/30/17 17:35 Basophils % (Manual) 0 % (0.0-1.8) 01/30/17 17:35 Metamyelocytes % 0 % 01/30/17 17:35 Myelocytes % 0 % 01/30/17 17:35 Promyelocytes % 0 % 01/30/17 17:35 Blast Cells % 0 % 01/30/17 17:35 Nucleated RBC % Not Reportable 01/30/17 17:35 Seg Neutrophils # 4.6 K/mm3 (1.8-7.7) 02/01/17 07:02 Seg Neutrophils # Man 15.8 K/mm3 (1.8-7.7) H 01/30/17 17:35 Band Neutrophils # 0.0 K/mm3 01/30/17 17:35 Lymphocytes # (Manual) 1.1 K/mm3 (1.2-5.4) L 01/30/17 17:35 Abs React Lymphs (Man) 0.0 K/mm3 01/30/17 17:35 Monocytes # (Manual) 0.7 K/mm3 (0.0-0.8) 01/30/17 17:35 Eosinophils # (Manual) 0.0 K/mm3 (0.0-0.4) 01/30/17 17:35 Basophils # (Manual) 0.0 K/mm3 (0.0-0.1) 01/30/17 17:35 Metamyelocytes # 0.0 K/mm3 01/30/17 17:35 Myelocytes # 0.0 K/mm3 01/30/17 17:35 Promyelocytes # 0.0 K/mm3 01/30/17 17:35 Blast Cells # 0.0 K/mm3 01/30/17 17:35 WBC Morphology Not Reportable 01/30/17 17:35 Hypersegmented Neuts Not Reportable 01/30/17 17:35 Hyposegmented Neuts Not Reportable 01/30/17 17:35 Hypogranular Neuts Not Reportable 01/30/17 17:35 Smudge Cells Not Reportable 01/30/17 17:35 Toxic Granulation Not Reportable 01/30/17 17:35 Toxic Vacuolation Not Reportable 01/30/17 17:35 Dohle Bodies Not Reportable 01/30/17 17:35 Pelger-Huet Anomaly Not Reportable 01/30/17 17:35 Johnna Rods Not Reportable 01/30/17 17:35 Platelet Estimate Appears normal 01/30/17 17:35 Clumped Platelets Not Reportable 01/30/17 17:35 Plt Clumps, EDTA Not Reportable 01/30/17 17:35 Large Platelets Not Reportable 01/30/17 17:35 Giant Platelets Not Reportable 01/30/17 17:35 Platelet Satelliting Not Reportable 01/30/17 17:35 Plt Morphology Comment Not Reportable 01/30/17 17:35 RBC Morphology Not Reportable 01/30/17 17:35 Dimorphic RBCs Not Reportable 01/30/17 17:35 Polychromasia Not Reportable 01/30/17 17:35 Hypochromasia Not Reportable 01/30/17 17:35 Poikilocytosis Not Reportable 01/30/17 17:35 Anisocytosis 1+ 01/30/17 17:35 Microcytosis Not Reportable 01/30/17 17:35 Macrocytosis Not Reportable 01/30/17 17:35 Spherocytes Not Reportable 01/30/17 17:35 Pappenheimer Bodies Not Reportable 01/30/17 17:35 Sickle Cells Not Reportable 01/30/17 17:35 Target Cells Not Reportable 01/30/17 17:35 Tear Drop Cells Not Reportable 01/30/17 17:35 Ovalocytes Not Reportable 01/30/17 17:35 Helmet Cells Not Reportable 01/30/17 17:35 [place] Bodies Not Reportable 01/30/17 17:35 Cutler Rings Not Reportable 01/30/17 17:35 Digna Cells Not Reportable 01/30/17 17:35 Bite Cells Not Reportable 01/30/17 17:35 Crenated Cell Not Reportable 01/30/17 17:35 Elliptocytes Not Reportable 01/30/17 17:35 Acanthocytes (Spur) Not Reportable 01/30/17 17:35 Rouleaux Not Reportable 01/30/17 17:35 Hemoglobin C Crystals Not Reportable 01/30/17 17:35 Schistocytes Not Reportable 01/30/17 17:35 Malaria parasites Not Reportable 01/30/17 17:35 [place] Bodies Not Reportable 01/30/17 17:35 Hem Pathologist Commnt No 01/30/17 17:35 Sodium 139 mmol/L (137-145) 09/06/17 17:35 Potassium 3.5 mmol/L (3.6-5.0) L 01/30/17 17:35 Chloride 99.0 mmol/L (98-107) 01/30/17 17:35 Carbon Dioxide 22 mmol/L (22-30) 01/30/17 17:35 Anion Gap 22 mmol/L 01/30/17 17:35 BUN 11 mg/dL (7-17) 01/30/17 17:35 Creatinine 0.6 mg/dL (0.7-1.2) L 01/30/17 17:35 Estimated GFR > 60 ml/min 01/30/17 17:35 BUN/Creatinine Ratio 18.33 % 01/30/17 17:35 Glucose 129 mg/dL (65-100) H 01/30/17 17:35 Calcium 8.9 mg/dL (8.4-10.2) 01/30/17 17:35 Total Bilirubin 0.50 mg/dL (0.1-1.2) 01/30/17 17:35 AST 16 units/L (5-40) 01/30/17 17:35 ALT 12 units/L (7-56) 01/30/17 17:35 Alkaline Phosphatase 64 units/L (35-129) 01/30/17 17:35 Total Protein 9.6 g/dL (6.3-8.2) H 01/30/17 17:35 Albumin 3.9 g/dL (3.9-5) 01/30/17 17:35 Albumin/Globulin Ratio 0.7 % 01/30/17 17:35 Lipase 17 units/L (13-60) 01/30/17 17:35 HCG, Qual Negative (Negative) 01/30/17 17:35 Urine Color Yellow (Yellow) 01/30/17 21:00 Urine Turbidity Slightly-cloudy (Clear) 01/30/17 21:00 Urine pH 8.0 (5.0-7.0) H 01/30/17 21:00 Ur Specific [place] 1.025 (1.003-1.030) 01/30/17 21:00 Urine Protein 100 mg/dl mg/dL (Negative) 01/30/17 21:00 Urine Glucose (UA) 50 mg/dL (Negative) 01/30/17 21:00 Urine Ketones Neg mg/dL (Negative) 01/30/17 21:00 Urine Blood Neg (Negative) 01/30/17 21:00 Urine Nitrite Neg (Negative) 01/30/17 21:00 Urine Bilirubin Neg (Negative) 01/30/17 21:00 Urine Urobilinogen < 2.0 mg/dL (<2.0) 01/30/17 21:00 Ur Leukocyte Esterase Sm (Negative) 01/30/17 21:00 Urine WBC (Auto) 3.0 /HPF (0.0-6.0) 01/30/17 21:00 Urine RBC (Auto) 6.0 /HPF (0.0-6.0) 01/30/17 21:00 U Epithel Cells (Auto) 27.0 /HPF (0-13.0) H 01/30/17 21:00 Urine Mucus 3+ /HPF 01/30/17 21:00
[2017-02-01 07:50] LABS: Anion Gap 17 mmol/L; BUN/Creatinine Ratio 15.71; Blood Urea Nitrogen 11 mg/dL (7-17); Calcium 8.8 mg/dL (8.4-10.2); Carbon Dioxide 27 mmol/L (22-30); Chloride 98.1 mmol/L (98-107); Glucose 91 mg/dL (65-100); Potassium 3.9 mmol/L (3.6-5.0); Sodium 138 mmol/L (137-145)
[2017-02-01] MEDS ORDERED: TRIUMEQ PO SCH (10:00)
[2017-02-01] MEDS: LOVENOX SUB-Q SCH (11:14)
[2017-02-01] MEDS: HABITROL TD SCH (11:14)
[2017-02-01] MEDS: XANAX PO SCH ×2 (11:15→21:38)
[2017-02-01] MEDS: VIBRAMYCIN PO SCH ×2 (11:15→21:38)
--- NOTE | 2017-02-01 12:23 | Progress Note ---
Assessment and Plan Assessment: 1) Leukocytosis: resolved; associated with abdominal pain, unclear etiology. DDx - partially treated UTI +/- PID +/-gastritis. Patient was recently on PO antibiotics-clindamycin for vulvar boil a week ago. UA on admission was unremarkable. 2) ?presumed UTI - partially treated - Abdominal CT showed a 1 cm right renal cyst? abscess? 3) ?PID - Pelvis US showed heterogenous and thickened endometrium. Blood cx negative. 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 Jacqueline Martinez MD Infectious Diseases Specialist [facility] M [phone] O [phone] Subjective Date of service: 02/01/17 Principal diagnosis: leukocytosis Interval history: Still c/o 10/10 right flank pain. also c/o nausea and vomiting x 1. No fever. Microbiology: Blood cultures: 01/31 ngtd Urine cultures: Respiratory cultures: Wound cultures: Stool cultures: Other: Current Antimicrobials: Zosyn 01/31 doxycycline 01/31 Previous Antimicrobials: Objective - Exam Narrative Exam: General appearance: Alert in NAD, conversant Eyes: anicteric sclerae, moist conjunctivae; no lid-lag; PERRLA HENT: Atraumatic; oropharynx clear with moist mucous membranes and no mucosal ulcerations/no oral thrush; normal hard and soft palate. Normal external ears. Neck: Trachea midline; supple, no thyromegaly or lymphadenopathy Lungs: CTA, with normal respiratory effort and no intercostal retractions CV: RRR, no murmurs Abdomen: Soft, mild TTP right flank Extremities: No peripheral edema or extremity lymphadenopathy Skin: Normal temperature, turgor and texture; no rash, ulcers or subcutaneous nodules Psych: Appropriate affect, alert and oriented to person, place and time. Neuro: alert and oriented x 3. Moving all extermities Lines: No CVL / PICC - Constitutional Vitals: Vital Signs Temp Pulse Resp BP Pulse Ox 98.2 F 62 20 120/64 100 02/01/17 07:37 02/01/17 07:37 02/01/17 11:16 02/01/17 07:37 02/01/17 07:37 Temperature -Last 24 Hours Temperature 98.2 F Temperature 98.5 F - Labs CBC & Chem 7: 02/01/17 07:02 02/01/17 07:02 Labs: Abnormal lab results 02/01/17 Range/Units 07:02 MCH 25 L (28-32) pg RDW 21.0 H (13.2-15.2) % [place] % (Auto) 8.4 H (0.0-7.3) % Lymph # 1.0 L (1.2-5.4) K/mm3 Seg Neutrophils % 73.4 H (40.0-70.0) %
[2017-02-01] MEDS: BENADRYL PO PRN (17:51)
[2017-02-01] MEDS: ZOFRAN IV PRN (21:53)
[2017-02-02] MEDS ORDERED: AMBIEN PO ONE (01:30)
[2017-02-02] MEDS: ZOSYN/NS 4.5GM/100ML 4.5 GM/100 ML VIAL IV SCH (06:51)
[2017-02-02] MEDS: DILAUDID IV PRN (06:58)
--- NOTE | 2017-02-02 09:15 | Discharge Summary ---
Providers - Providers Date of Admission: 01/31/17 01:07 Date of discharge: 02/02/17 Attending physician: JOYCE WATSON 01/31/17 09:24 Consult to Physician [CONS] Routine Consulting Provider: CELINA LUIS Reason For Exam: Perivaginal infection Place consult to:: DR. ULIS Notified:: OFFICE Phone number called:: [phone] Was contact made?: Yes If yes, spoke with:: REGIS Sifuentes called:: 09:47 Comment:: BELEM NOTIFIED 01/31/17 09:25 Consult to Physician [CONS] Routine Consulting Provider: DAMARIS ZAMORA Reason For Exam: perivaginal infection Place consult to:: DR. GIBBS Notified:: DR. GIBBS Phone number called:: IN HOUSE Was contact made?: Yes If yes, spoke with:: DR. GIBBS Time called:: 09:41 Comment:: BELEM NOTIFIED 01/31/17 17:19 Consult to Physician [CONS] Routine Consulting Provider: DAVID WEISS Reason For Exam: abdominal pain Place consult to:: DR. 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 Hospitalization Condition: Fair Disposition: DC-01 TO HOME OR SELFCARE Core Measure Documentation - Palliative Care Palliative Care/ Comfort Measures: Not Applicable - Core Measures Any of the following diagnoses?: none Exam - Constitutional Vitals: Temp Pulse Resp BP Pulse Ox 98.9 F 92 H 20 115/69 100 02/01/17 23:25 02/01/17 23:25 02/02/17 06:58 02/01/17 23:25 02/01/17 23:25 Plan Activity: no restrictions Diet: low fat, low cholesterol, low salt Follow up with: PRIMARY CARE,MD [Primary Care Provider] - 7 Days Prescriptions: oxyCODONE /ACETAMINOPHEN [Percocet 5/325 mg] 1 tab PO Q6HR PRN #12 tablet PRN Reason: Pain
[2017-02-02] MEDS: LOVENOX SUB-Q SCH (10:16)
[2017-02-02] MEDS: HABITROL TD SCH (10:17)
[2017-02-02] MEDS: VIBRAMYCIN PO SCH (10:17)
[2017-02-02] MEDS: XANAX PO SCH (10:17)
[2017-02-02 11:35] VITALS: BP 125/72
[2017-02-02 11:43] LABS: HIV-1 RNA QN PCR 3.87 Log cps/mL (<1.30)
== END 2017-02-02 13:55 | disposition home or self-care (01) | DRG 872 ==
LOC: ED 15:19 → 3A 01-31 01:07
PROVIDERS: ADMIT Internal Medicine; ATTEND Internal Medicine
DX: A41.9 Sepsis, unspecified organism (principal); K21.9 Gastro-esophageal reflux disease without esophagitis; I10 Essential (primary) hypertension; F32.9 Major depressive disorder, single episode, unspecified; N75.1 Abscess of Bartholin's gland; N73.9 Female pelvic inflammatory disease, unspecified; F41.9 Anxiety disorder, unspecified; M19.90 Unspecified osteoarthritis, unspecified site; Z82.49 Family history of ischemic heart disease and other diseases of the circulatory system; Z71.6 Tobacco abuse counseling; Z87.442 Personal history of urinary calculi; Z87.891 Personal history of nicotine dependence; Z88.8 Allergy status to other drugs, medicaments and biological substances
CPT/HCPCS: 36415; 74177; 76770; 76830; 76856; 80048; 80053; 81001; 82024; 83690; 84703; 85007; 85025; 86140; 87040; 87536; 87591; 90686; 90732; 96361; 96374; 96375; 99285; J1170; J1650; J2270; J2405; J2543; J7030; Q0162; Q9967